=== PATIENT | male | born 1970 | race Two or more races ===

== ENCOUNTER 2020-11-13 12:21 | Emergency (ER) | payer SELFPAY ==
[~2020-11-13] VITALS: Ht 172.7 cm; Wt 63.5 kg
[2020-11-13 12:26] VITALS: BP 154/82
[2020-11-13] MEDS ORDERED: ACETAMINOPHEN 325 MG TABLET PO ONE (12:30)
[2020-11-13] MEDS ORDERED: ACETAMINOPHEN 325 MG TABLET ONE (12:32)
--- NOTE | 2020-11-13 12:41 | NUR ---
MEDICATED FOR FEVER & COVID TEST DONE & SENT TO LAB. Patient discharged to home in stable condition. Written and verbal after care instructions given. Patient verbalizes understanding of instruction.
--- NOTE | 2020-11-14 22:30 | NUR ---
NOTIFIED OF COVID RESULTS, PT IS POSITIVE FOR COVID
== END 2020-11-13 12:43 | disposition home or self-care (01) ==
LOC: ER 12:25
DX: U07.1 COVID-19 (principal)
CPT/HCPCS: 99283; C9803; U0003